=== PATIENT | male | born 1960 | race Caucasian/White ===

== ENCOUNTER 2016-10-22 15:21 | Observation (INO) | payer OTHER ==
[2016-10-22] MEDS ORDERED: ASPIRIN CHEW 81 MG TABLET PO STA (16:57)
[2016-10-22] MEDS ORDERED: ASPIRIN CHEW 81 MG TABLET ONE (17:10)
[2016-10-22] MEDS ORDERED: ONDANSETRON 4 MG/2 ML VIAL IVP PRN (19:08)
[2016-10-22] MEDS ORDERED: SODIUM CHLORIDE FLUSH 0.9% 10 ML SYRINGE IVP PRN (19:08)
[2016-10-22] MEDS ORDERED: ACETAMINOPHEN 325 MG TABLET PO PRN (19:08)
[2016-10-22] MEDS ORDERED: TEMAZEPAM 15 MG CAPSULE PO PRN (19:08)
[2016-10-22] MEDS ORDERED: NITROGLYCERIN SL 0.4 MG TABLET SL PRN (19:10)
[2016-10-22] MEDS ORDERED: LORazepam 2 MG/ML SYRINGE IVP PRN (20:05)
[2016-10-22] MEDS: SODIUM CHLORIDE FLUSH 0.9% 10 ML SYRINGE IVP SCH (22:28)
[2016-10-23] MEDS: SODIUM CHLORIDE FLUSH 0.9% 10 ML SYRINGE IVP SCH (06:17)
[2016-10-23] MEDS ORDERED: PANTOPRAZOLE 40 MG TABLET PO SCH (07:00)
[2016-10-23] MEDS ORDERED: IPRATROPIUM 0.2 MG/ML NEB INH SCH ×2 (07:00→09:00)
[2016-10-23] MEDS ORDERED: IPRATROPIUM 0.2 MG/ML NEB INH ONE (07:03)
[2016-10-23] MEDS ORDERED: ENOXAPARIN 40 MG/0.4 ML SYRINGE SUBQ SCH (09:00)
[2016-10-23] MEDS ORDERED: POLYETHYLENE GLYCOL 3350 17 GM PACKET PO SCH (09:00)
[2016-10-23] MEDS ORDERED: ASPIRIN EC 81 MG TABLET PO SCH (09:00)
== END 2016-10-23 12:56 | disposition home or self-care (01) ==
DX: R07.89 Other chest pain (principal); J43.8 Other emphysema; K21.9 Gastro-esophageal reflux disease without esophagitis; Z87.891 Personal history of nicotine dependence; Z82.49 Family history of ischemic heart disease and other diseases of the circulatory system; Z85.828 Personal history of other malignant neoplasm of skin
CPT/HCPCS: 36415; 71010; 80048; 80053; 80061; 82550; 82553; 83036; 83690; 83735; 84100; 84484; 85025; 85651; 86141; 87275; 87276; 93005; 93306; 94640; 96372; 99284; A9270; G0378; J1650

== ENCOUNTER 2016-12-25 08:48 | Outpatient (CLI) | payer OTHER | END 2016-12-25 08:49 | disposition home or self-care (01) | DX: R07.9 Chest pain, unspecified (principal); R06.02 Shortness of breath ==

== ENCOUNTER 2017-09-30 15:25 | Emergency (ER) | payer OTHER ==
[2017-09-30] MEDS ORDERED: predniSONE 20 MG TABLET PO STA (16:38)
[2017-09-30] MEDS ORDERED: IPRATROPIUM/ALBUTEROL 3 ML NEB INH STA (16:39)
--- NOTE | 2017-09-30 16:44 | ED Physician Documentation ---
History of Present Illness - Stated complaint Stated Complaint: DIFF BREATHING/CHILLS/N - Chief complaint Chief Complaint: Resp - History obtained from History obtained from: Patient, Family - History of Present Illness Timing: How many days ago (2) Pain level max: 2 Pain level now: 2 Improved by: rest Worsened by: exertion - Additonal information Additional information: Patient is a 57-year-old male who presents to the emergency department complaining that he has felt sick since . Feels a tightness in his chest like a "child is sitting on top of me". He has been using his Spiriva but not his rescue inhaler has bullous emphysema. States has felt febrile, but no measured fevers. Has a mild dry cough. Also has body aches. Review of Systems Ten Systems: 10 systems reviewed and negative Constitutional: reports: Fever. denies: Chills Ears: denies: Ear pain Nose: reports: Rhinorrhea / runny nose, Congestion Throat: denies: Sore throat Cardiac: denies: Chest pain / pressure Respiratory: reports: Dyspnea, Cough, Wheezing GI: denies: Abdominal Pain, Nausea, Vomiting, Diarrhea Skin: denies: Rash Musculoskeletal: denies: Neck pain, Back pain Neurologic: denies: Headache PD PAST MEDICAL HISTORY - Past Medical History Past Medical History: Yes Cardiovascular: None Respiratory: Emphysema Neuro: None Endocrine/Autoimmune: None GI: GERD : None HEENT: None Musculoskeletal: Chronic back pain Derm: None - Past Surgical History Past Surgical History: Yes General: Appendectomy, Hiatal hernia repair Ortho: Spine surgery Cardiovascular: Other Derm: Skin cancer surgery - Present Medications Home Medications: Ambulatory Orders Medication Instructions Recorded Confirmed Tiotropium [place] [Spiriva] 1 puffs INH DAILY 10/23/16 09/30/17 Albuterol Sulf [Ventolin Hfa 2 puffs INH Q4HR PRN #1 inhaler 09/30/17 Inhaler] Esomeprazole Magnesium [Nexium] 40 mg PO DAILY 09/30/17 09/30/17 predniSONE [Prednisone] 40 mg PO DAILY #10 tablet 09/30/17 - Allergies Allergies/Adverse Reactions: Allergies Allergy/AdvReac Type Severity Reaction Status Date / Time No Known Drug Allergies Allergy Verified 09/30/17 15:33 - Social History Does the pt smoke?: No Smoking Status: Former smoker Does the pt drink ETOH?: Yes Does the pt have substance abuse?: Yes Substance Use and Type: Marijuana - Immunizations Immunizations are current?: Yes PD ED PE NORMAL - Vitals Vital signs reviewed: Yes - General General: Alert and oriented X 3, No acute distress - HEENT HEENT: PERRL, Moist mucous membranes, Pharynx benign - Neck Neck: Supple, no meningeal sign - Cardiac Cardiac: RRR, Strong equal pulses - Respiratory Respiratory: No respiratory distress, Other (mild wheezing B) - Abdomen Abdomen: Soft, Non tender, Non distended - Derm Derm: Warm and dry - Extremities Extremities: No edema, No calf tenderness / cord - Neuro Neuro: Alert and oriented X 3 - Psych Psych: Normal mood, Normal affect Results - Vitals Vitals: Vital Signs - 24 hr 09/30/17 09/30/17 09/30/17 15:30 16:05 16:55 Temperature 36.3 C L Heart Rate 88 81 74 Respiratory 16 18 12 Rate Blood Pressure 161/87 H 143/85 H O2 Saturation 98 100 09/30/17 18:00 Temperature Heart Rate 85 Respiratory 16 Rate Blood Pressure 130/81 H O2 Saturation 98 Oxygen O2 Source Room air - EKG (time done) 1650 Rate: Rate (enter#) (78) Rhythm: NSR [place]: Normal Intervals: Normal [place] QRS: Normal Ischemia: Normal ST segments - Labs Labs: Laboratory Tests 09/30/17 09/30/17 09/30/17 16:46 16:46 16:46 WBC 7.8 RBC 5.02 Hgb 15.2 Hct 45.7 MCV 91.1 MCH 30.3 MCHC 33.3 RDW 12.8 Plt Count 212 MPV 7.8 Neut # 6.1 Lymph # 0.9 L [place] # 0.5 Eos # 0.2 Baso # 0.0 Absolute Nucleated RBC 0.00 Nucleated RBC % 0.0 Sodium 138 Potassium 4.3 Chloride 103 Carbon Dioxide 27 Anion Gap 8.0 BUN 15 Creatinine 0.7 Estimated GFR (MDRD) 115 Glucose 105 H Calcium 9.3 Total Bilirubin 0.5 AST 28 ALT 22 Alkaline Phosphatase 45 Troponin I < 0.04 Total Protein 7.2 Albumin 4.5 Globulin 2.7 Albumin/Globulin Ratio 1.7 Lipase 25 - Rads (name of study) cxr Radiology: Prelim report reviewed, EMP read contemporaneously, See rad report ( Chronic biapical changes, otherwise unremarkable single view chest. ) PD MEDICAL DECISION MAKING - ED course Complexity details: reviewed results, re-evaluated patient, considered differential, d/w patient ED course: Patient is a 57-year-old male who presents to the emergency department with what appears to be a COPD flare. He is well-appearing, nontoxic. Afebrile. No hypoxia. Feels better after breathing treatments and steroids. No evidence of acute coronary syndrome. No pneumothorax. No pneumonia. No sepsis. We will continue supportive care and follow-up with his doctor. Patient counseled regarding signs and symptoms for which I believe and urgent re-evaluation would be necessary. Patient with good understanding of and agreement to plan and is comfortable going home at this time This document was made in part using voice recognition software. While efforts are made to proofread this document, sound alike and grammatical errors may occur. Departure - Departure Disposition: 01 Home, Self Care Clinical Impression: URI, acute Chest pain Qualifiers: Chest pain type: unspecified Qualified Code(s): R07.9 - Chest pain, unspecified Condition: Good Instructions: ED Viral Syndrome Follow-Up: Provider,Other [Primary Care Provider] - Within 1 week Prescriptions: Albuterol Sulf [Ventolin Hfa Inhaler] 2 puffs INH Q4HR PRN #1 inhaler PRN Reason: Wheezing predniSONE [Prednisone] 40 mg PO DAILY #10 tablet Comments: Return if you worsen. This should improve over the next few days. Forms: Activity restrictions Discharge Date/Time: 09/30/17 18:04
[2017-09-30 16:52] LABS: BASOPHILS % (AUTO) 0.6 %; EOSINOPHILS # (AUTO) 0.2 10^3/uL (0.0-0.7); EOSINOPHILS % (AUTO) 2.6 %; HGB - HEMOGLOBIN 15.2 g/dL (14.0-18.0); LYMPHOCYTES # (AUTO) 0.9 10^3/uL (1.5-3.5); LYMPHOCYTES % (AUTO) 11.6 %; MEAN CORPUSCULAR HEMOGLOBIN 30.3 pg (27.0-31.0); MEAN CORPUSCULAR HGB CONC 33.3 g/dL (32.0-36.0); MEAN CORPUSCULAR VOLUME 91.1 fL (80.0-94.0); MEAN PLATELET VOLUME 7.8 fL (7.4-11.4); MONOCYTES # (AUTO) 0.5 10^3/uL (0.0-1.0); NEUTROPHILS # (AUTO) 6.1 10^3/uL (1.5-6.6); NEUTROPHILS % (AUTO) 78.2 %; PLT - PLATELET COUNT 212 10^3/uL (130-450); RED BLOOD COUNT 5.02 10^6/uL (4.70-6.10); RED CELL DISTRIBUTION WIDTH 12.8 % (12.0-15.0); WHITE BLOOD COUNT 7.8 x10^3/uL (4.8-10.8)
[2017-09-30 17:05] LABS: ALBUMIN 4.5 g/dL (3.2-5.5); ALBUMIN/GLOBULIN RATIO 1.7 (1.0-2.2); BILIRUBIN,TOTAL 0.5 mg/dL (0.2-1.0); CALCIUM 9.3 mg/dL (8.5-10.3); CREATININE 0.7 mg/dL (0.6-1.2); TOTAL PROTEIN 7.2 g/dL (6.7-8.2)
--- NOTE | 2017-09-30 17:45 | XRAY Report ---
EXAM: CHEST RADIOGRAPHY EXAM DATE: 09/30/2017 05:22 PM. CLINICAL HISTORY: Chest pain. Dyspnea. COMPARISON: 10/23/2012. TECHNIQUE: 1 view. FINDINGS: Lungs/Pleura: Evidence of biapical scarring and surgery, otherwise no focal opacities evident. No ple ural effusion. No pneumothorax. Mediastinum: Within exam limitations, the cardiomediastinal contour is normal. Other: No bony abnormalities noted. IMPRESSION: Chronic biapical changes, otherwise unremarkable single view chest. [facility] Referring Provider Line: [phone] SITE ID: [id number]
[2017-09-30 18:00] VITALS: BP 130/81
== END 2017-09-30 18:04 | disposition home or self-care (01) ==
LOC: ED 15:25
DX: J06.9 Acute upper respiratory infection, unspecified (principal); R07.9 Chest pain, unspecified; J43.9 Emphysema, unspecified; K21.9 Gastro-esophageal reflux disease without esophagitis; Z87.891 Personal history of nicotine dependence
CPT/HCPCS: 36415; 71010; 80053; 83690; 84484; 85025; 93005; 94640; 99283; 99284; J7512; J7620

== ENCOUNTER 2019-01-24 12:53 | Emergency (ER) | payer OTHER ==
[2019-01-24 13:18] LABS: BASOPHILS # (AUTO) 0.1 10^3/uL (0.0-0.1); BASOPHILS % (AUTO) 1.1 %; EOSINOPHILS # (AUTO) 0.2 10^3/uL (0.0-0.7); EOSINOPHILS % (AUTO) 2.5 %; HGB - HEMOGLOBIN 16.2 g/dL (14.0-18.0); LYMPHOCYTES # (AUTO) 1.1 10^3/uL (1.5-3.5); LYMPHOCYTES % (AUTO) 12.6 %; MEAN CORPUSCULAR HEMOGLOBIN 30.3 pg (27.0-31.0); MEAN CORPUSCULAR HGB CONC 33.5 g/dL (32.0-36.0); MEAN CORPUSCULAR VOLUME 90.4 fL (80.0-94.0); MEAN PLATELET VOLUME 7.9 fL (7.4-11.4); MONOCYTES # (AUTO) 0.8 10^3/uL (0.0-1.0); MONOCYTES % (AUTO) 9.7 %; NEUTROPHILS # (AUTO) 6.4 10^3/uL (1.5-6.6); NEUTROPHILS % (AUTO) 74.1 %; PLT - PLATELET COUNT 225 10^3/uL (130-450); RED BLOOD COUNT 5.36 10^6/uL (4.70-6.10); RED CELL DISTRIBUTION WIDTH 13.4 % (12.0-15.0); WHITE BLOOD COUNT 8.6 x10^3/uL (4.8-10.8)
[2019-01-24 13:28] LABS: ALBUMIN 4.4 g/dL (3.2-5.5); ALBUMIN/GLOBULIN RATIO 1.4 (1.0-2.2); CALCIUM 8.7 mg/dL (8.5-10.3); CREATININE 0.9 mg/dL (0.6-1.2); TOTAL PROTEIN 7.5 g/dL (6.7-8.2)
--- NOTE | 2019-01-24 14:20 | ED Physician Documentation ---
PD HPI ABD PAIN - Stated complaint Stated Complaint: DIARRHEA - Chief complaint Chief Complaint: Abd Pain - History obtained from History obtained from: Patient - History of Present Illness Timing - onset: Other (4 days N/V/D, constant with fever at home to 101.4. Slight epigastric pain. Chest tight and slight dyspnea. Can take fluids, but still cannot take solids.) Review of Systems Ten Systems: 10 systems reviewed and negative Constitutional: reports: Fever, Chills Nose: denies: Rhinorrhea / runny nose Cardiac: reports: Chest pain / pressure. denies: Palpitations Respiratory: reports: Dyspnea, Cough (slight, dry) GI: reports: Abdominal Pain, Nausea, Vomiting, Diarrhea. denies: Constipation, Hematemesis, Bloody / black stool PD PAST MEDICAL HISTORY - Past Medical History Cardiovascular: None Respiratory: Emphysema Endocrine/Autoimmune: None GI: GERD : None HEENT: None Musculoskeletal: Chronic back pain Derm: None - Past Surgical History Past Surgical History: Yes General: Appendectomy, Hiatal hernia repair Ortho: Spine surgery Cardiovascular: Other (bilateral lobectomy) Derm: Skin cancer surgery - Present Medications Home Medications: Ambulatory Orders Medication Instructions Recorded Confirmed Tiotropium [place] [Spiriva] 1 puffs INH DAILY 10/23/16 09/30/17 Albuterol Sulf [Ventolin Hfa 2 puffs INH Q4HR PRN #1 inhaler 09/30/17 Inhaler] Hydrocodone/Acetaminophen 1 - 2 each PO Q6H PRN #10 tablet 01/24/19 [Hydrocodon-Acetaminophen 5-325] Omeprazole 20 mg PO 01/24/19 01/24/19 Ondansetron Odt [Zofran] 4 mg TL Q6H PRN #10 tablet 01/24/19 - Allergies Allergies/Adverse Reactions: Allergies Allergy/AdvReac Type Severity Reaction Status Date / Time No Known Drug Allergies Allergy Verified 01/24/19 12:58 - Social History Does the pt smoke?: No Smoking Status: Former smoker Does the pt drink ETOH?: Yes Does the pt have substance abuse?: Yes - Family History Family history: reports: Non contributory - Immunizations Immunizations are current?: Yes PD ED PE NORMAL - Vitals Vital signs reviewed: Yes - General General: Alert and oriented X 3, No acute distress - HEENT HEENT: PERRL, EOMI - Neck Neck: Supple, no meningeal sign, No bony TTP - Cardiac Cardiac: RRR, No murmur - Respiratory Respiratory: No respiratory distress, Clear bilaterally - Abdomen Abdomen: Normal bowel sounds, Other (Epigastric TTP, no surgical signs) - Back Back: No CVA TTP, No spinal TTP - Derm Derm: Normal color, Warm and dry - Extremities Extremities: No edema, No calf tenderness / cord - Neuro Neuro: Alert and oriented X 3, Normal speech - Psych Psych: Normal mood, Normal affect Results - Vitals Vitals: Vital Signs - 24 hr 01/24/19 12:56 Temperature 35.7 C L Heart Rate 100 Respiratory 20 Rate Blood Pressure 135/76 H O2 Saturation 99 Oxygen O2 Source Room air - EKG (time done) 1312 Rate: Rate (enter#) (90) Rhythm: NSR [place]: Normal Intervals: Normal [place] QRS: Normal Ischemia: Normal ST segments Computer interpretation: Agree with computer - Labs Labs: Laboratory Tests 01/24/19 01/24/19 01/24/19 13:11 13:11 13:11 WBC 8.6 RBC 5.36 Hgb 16.2 Hct 48.5 MCV 90.4 MCH 30.3 MCHC 33.5 RDW 13.4 Plt Count 225 MPV 7.9 Neut # (Auto) 6.4 Lymph # (Auto) 1.1 L [place] # (Auto) 0.8 Eos # (Auto) 0.2 Baso # (Auto) 0.1 Absolute Nucleated RBC 0.01 Nucleated RBC % 0.1 D-Dimer < 200.0 L Sodium 136 Potassium 3.7 Chloride 100 L Carbon Dioxide 27 Anion Gap 9.0 BUN 22 H Creatinine 0.9 Estimated GFR (MDRD) 86 L Glucose 109 H Calcium 8.7 Total Bilirubin 1.0 AST 28 ALT 24 Alkaline Phosphatase 53 Troponin I Total Protein 7.5 Albumin 4.4 Globulin 3.1 Albumin/Globulin Ratio 1.4 Lipase 28 Urine Color Urine Clarity Urine pH Ur Specific [place] Urine Protein Urine Glucose (UA) Urine Ketones Urine Occult Blood Urine Nitrite Urine Bilirubin Urine Urobilinogen Ur Leukocyte Esterase Ur Microscopic Review Urine Culture Comments 01/24/19 01/24/19 13:11 14:16 WBC RBC Hgb Hct MCV MCH MCHC RDW Plt Count MPV Neut # (Auto) Lymph # (Auto) [place] # (Auto) Eos # (Auto) Baso # (Auto) Absolute Nucleated RBC Nucleated RBC % D-Dimer Sodium Potassium Chloride Carbon Dioxide Anion Gap BUN Creatinine Estimated GFR (MDRD) Glucose Calcium Total Bilirubin AST ALT Alkaline Phosphatase Troponin I < 0.04 Total Protein Albumin Globulin Albumin/Globulin Ratio Lipase Urine Color YELLOW Urine Clarity CLEAR Urine pH 5.0 Ur Specific [place] 1.020 Urine Protein NEGATIVE Urine Glucose (UA) NEGATIVE Urine Ketones TRACE Urine Occult Blood TRACE-INTA Urine Nitrite NEGATIVE Urine Bilirubin NEGATIVE Urine Urobilinogen 1 (NORMAL) Ur Leukocyte Esterase NEGATIVE Ur Microscopic Review NOT INDICATED Urine Culture Comments NOT INDICATED - Rads (name of study) 2v chest Radiology: EMP read contemporaneously (NAD) PD MEDICAL DECISION MAKING - ED course ED course: This is a 58-year-old gentleman who presents with mild pleuritic chest pain in the setting of what otherwise sounds like a viral gastroenteritis. Work-up demonstrates elevated BUN but normal chest x-ray, EKG, troponin and other labs. He was feeling better after meds here. He requested a work note. Departure - Departure Disposition: 01 Home, Self Care Clinical Impression: Vomiting, Diarrhea, Chest pain Condition: Good Record reviewed to determine appropriate education?: Yes Instructions: ED Nausea Vomiting Prescriptions: Hydrocodone/Acetaminophen [Hydrocodon-Acetaminophen 5-325] 1 - 2 each PO Q6H PRN #10 tablet PRN Reason: pain Ondansetron Odt [Zofran] 4 mg TL Q6H PRN #10 tablet PRN Reason: Nausea / Vomiting Comments: Labs and x-rays show only mild dehydration today. No evidence of a heart issue. Return if worse or if not better in the next 12 hours. Forms: Activity restrictions
[2019-01-24] MEDS ORDERED: SODIUM CHLORIDE 0.9% 1,000 ML IV ONE (14:22)
[2019-01-24] MEDS ORDERED: MAG HYDROX/AL HYDROX/SIMETH 30 ML UDC PO STA (14:23)
[2019-01-24] MEDS ORDERED: LIDOCAINE VISCOUS 2% 15 ML UDC MM STA (14:23)
[2019-01-24 14:26] LABS: BILIRUBIN,URINE NEGATIVE (NEGATIVE); GLUCOSE, URINE (UA) NEGATIVE (NEGATIVE); KETONES,URINE (UA) TRACE mg/dL (NEGATIVE); LEUKOCYTE ESTERASE, URINE NEGATIVE (NEGATIVE); NITRITE,URINE NEGATIVE (NEGATIVE); OCCULT BLOOD,URINE TRACE-INTA (NEGATIVE); PROTEIN,URINE NEGATIVE (NEGATIVE); UROBILINOGEN,URINE 1 (NORMAL) E.U./dL (NORMAL)
[2019-01-24] MEDS ORDERED: KETOROLAC 30 MG/ML VIAL IVP STA (14:30)
[2019-01-24] MEDS ORDERED: ONDANSETRON 4 MG/2 ML VIAL IVP STA (14:30)
[2019-01-24 14:31] LABS: CLARITY,URINE CLEAR (CLEAR)
--- NOTE | 2019-01-24 14:57 | XRAY Report ---
Reason: chest pain cough Procedure Date: 01/24/2019 Accession Number: [id number] / [id number] Procedure: XR - Chest 2 View X-Ray CPT Code: 27033 FULL RESULT: EXAM: CHEST RADIOGRAPHY EXAM DATE: 01/24/2019 02:45 PM. CLINICAL HISTORY: Chest pain cough. COMPARISON: CHEST 1 VIEW 09/30/2017 5:13 PM. TECHNIQUE: 2 views. FINDINGS: Lungs/Pleura: Lungs appear without significant change. There is mild elevation of the right hemidiaphragm. There is central interstitial prominence in the right lung. Negative for pleural effusion or pneumothorax. Mediastinum: Heart size is normal. Trachea is midline. Other: None. IMPRESSION: No change. No acute pneumonia. [facility]
[2019-01-24 15:31] VITALS: BP 129/78
== END 2019-01-24 15:37 | disposition home or self-care (01) ==
LOC: ED 12:53
DX: R11.2 Nausea with vomiting, unspecified (principal); R19.7 Diarrhea, unspecified; R07.81 Pleurodynia; E86.0 Dehydration; K21.9 Gastro-esophageal reflux disease without esophagitis; J43.9 Emphysema, unspecified; Z87.891 Personal history of nicotine dependence
CPT/HCPCS: 36415; 71046; 80053; 81003; 83690; 84484; 85025; 85379; 93005; 96361; 96374; 99283; A9270; 81001; 87086

== ENCOUNTER 2019-10-21 12:41 | Emergency (ER) | payer OTHER ==
--- NOTE | 2019-10-21 16:02 | ED Physician Documentation ---
PD HPI URI - Stated complaint Stated Complaint: SOA/FEVER - Chief complaint Chief Complaint: General - History obtained from History obtained from: Patient - History of Present Illness Timing - onset: Last night Timing duration: Days (1) Timing details: Abrupt onset, Still present Associated symptoms: Fever, Chills, Nasal congestion, Dry cough, Other (urinary frequency). No: Sore throat Improves by: Rest, Medication Worsened by: Activity Similar symptoms before: Has not had sx before Recently seen: Not recently seen - Additional information Additional information: Previously well 59-year-old male was at work last night when he developed shaking chills. He has developed a bit of a headache and now he is coming to the emergency department for evaluation. He continues to have a headache behind his ears bilaterally and he has some urinary frequency without dysuria. Review of Systems Constitutional: reports: Fever, Chills, Myalgias, Fatigue Eyes: denies: Decreased vision Ears: reports: Ear pain Nose: reports: Congestion Throat: denies: Sore throat Cardiac: denies: Chest pain / pressure, Palpitations Respiratory: reports: Cough. denies: Dyspnea GI: denies: Abdominal Pain, Nausea, Vomiting : reports: Frequency. denies: Dysuria Skin: denies: Rash Musculoskeletal: denies: Neck pain, Back pain, Extremity pain Neurologic: denies: Generalized weakness, Focal weakness, Numbness Psychiatric: denies: Depressed PD PAST MEDICAL HISTORY - Past Medical History Cardiovascular: None Respiratory: Emphysema Neuro: None Endocrine/Autoimmune: None GI: GERD : None HEENT: None Psych: None Musculoskeletal: Chronic back pain Derm: None - Past Surgical History Past Surgical History: Yes General: Appendectomy, Hiatal hernia repair Ortho: Spine surgery Cardiovascular: Other (bilateral lobectomy) Derm: Skin cancer surgery - Present Medications Home Medications: Ambulatory Orders Medication Instructions Recorded Confirmed Tiotropium [place] [Spiriva] 1 puffs INH DAILY 10/23/16 09/30/17 Albuterol Sulf [Ventolin Hfa 2 puffs INH Q4HR PRN #1 inhaler 09/30/17 Inhaler] Hydrocodone/Acetaminophen 1 - 2 each PO Q6H PRN #10 tablet 01/24/19 [Hydrocodon-Acetaminophen 5-325] Omeprazole 20 mg PO 01/24/19 01/24/19 Ondansetron Odt [Zofran] 4 mg TL Q6H PRN #10 tablet 01/24/19 - Allergies Allergies/Adverse Reactions: Allergies Allergy/AdvReac Type Severity Reaction Status Date / Time No Known Drug Allergies Allergy Verified 10/21/19 12:54 - Social History Does the pt smoke?: No Smoking Status: Former smoker Does the pt drink ETOH?: Yes Does the pt have substance abuse?: Yes - Immunizations Immunizations are current?: Yes - POLST Patient has POLST: No PD ED PE NORMAL - Vitals Vital signs reviewed: Yes (tachy ) - General General: Alert and oriented X 3, No acute distress, Well developed/nourished, Other (warm to the touch) - HEENT HEENT: Atraumatic, PERRL, Pharynx benign, Dentition benign, Other (minimal inflamation to both TM's) - Cardiac Cardiac: RRR, No murmur - Respiratory Respiratory: No respiratory distress, Clear bilaterally - Abdomen Abdomen: Normal bowel sounds, Soft, Non tender, Non distended, No organomegaly - Back Back: No CVA TTP, No spinal TTP - Derm Derm: Normal color, Warm and dry, No rash - Extremities Extremities: No deformity, No tenderness to palpate, No edema, No calf tenderness / cord - Neuro Neuro: Alert and oriented X 3 Eye Opening: Spontaneous Motor: Obeys Commands Verbal: Oriented GCS Score: 15 - Psych Psych: Normal mood Results - Vitals Vitals: Vital Signs - 24 hr 10/21/19 10/21/19 10/21/19 12:50 15:21 18:16 Temperature 36.9 C 37.7 C H 36.9 C Heart Rate 102 H 97 85 Respiratory 16 18 18 Rate Blood Pressure 116/76 115/68 123/75 O2 Saturation 97 98 98 Oxygen O2 Source Room air - Labs Labs: Laboratory Tests 10/21/19 10/21/19 10/21/19 12:55 16:26 17:40 WBC 7.2 RBC 4.92 Hgb 15.0 Hct 44.7 MCV 90.9 MCH 30.5 MCHC 33.6 RDW 12.8 Plt Count 187 MPV 9.5 Neut # (Auto) 6.1 Lymph # (Auto) 0.4 L [place] # (Auto) 0.5 Eos # (Auto) 0.1 Baso # (Auto) 0.0 Absolute Nucleated RBC 0.00 Nucleated RBC % 0.0 Sodium Potassium Chloride Carbon Dioxide Anion Gap BUN Creatinine Estimated GFR (MDRD) Glucose Lactic Acid Calcium Total Bilirubin AST ALT Alkaline Phosphatase Total Protein Albumin Globulin Albumin/Globulin Ratio Lipase Urine Color YELLOW Urine Clarity CLEAR Urine pH 6.5 Ur Specific [place] 1.025 Urine Protein NEGATIVE Urine Glucose (UA) NEGATIVE Urine Ketones NEGATIVE Urine Occult Blood TRACE-LYSE Urine Nitrite NEGATIVE Urine Bilirubin NEGATIVE Urine Urobilinogen 0.2 (NORMAL) Ur Leukocyte Esterase NEGATIVE Ur Microscopic Review NOT INDICATED Urine Culture Comments NOT INDICATED Influenza A (Rapid) Negative Influenza B (Rapid) Negative 10/21/19 10/21/19 17:40 17:40 WBC RBC Hgb Hct MCV MCH MCHC RDW Plt Count MPV Neut # (Auto) Lymph # (Auto) [place] # (Auto) Eos # (Auto) Baso # (Auto) Absolute Nucleated RBC Nucleated RBC % Sodium 135 Potassium 3.5 Chloride 104 Carbon Dioxide 23 Anion Gap 8.0 BUN 15 Creatinine 0.8 Estimated GFR (MDRD) 98 Glucose 132 H Lactic Acid 0.8 Calcium 8.9 Total Bilirubin 1.1 H AST 32 ALT 25 Alkaline Phosphatase 53 Total Protein 7.4 Albumin 4.4 Globulin 3.0 Albumin/Globulin Ratio 1.5 Lipase 28 Urine Color Urine Clarity Urine pH Ur Specific [place] Urine Protein Urine Glucose (UA) Urine Ketones Urine Occult Blood Urine Nitrite Urine Bilirubin Urine Urobilinogen Ur Leukocyte Esterase Ur Microscopic Review Urine Culture Comments Influenza A (Rapid) Influenza B (Rapid) - Rads (name of study) chest 2 view Radiology: Prelim report reviewed (Impression: No change negative for acute cardiopulmonary abnormality.), EMP read indepedently, See rad report PD MEDICAL DECISION MAKING - ED course Complexity details: considered differential, d/w patient ED course: 59-year-old male with shaking chills beginning last night has a negative influenza serology and continues to have some chills and fever today. He has minimal respiratory complaints and no inflammation on examination. His chest x- ray was without evidence of infiltrate his blood work is unremarkable lactate is unremarkable I do not believe he has sepsis. Urinalysis is unremarkable. He is diagnosed with a viral syndrome and we have recommended conservative treatment with fluids and tylenol. He is administered toradal for headache. Departure - Departure Disposition: 01 Home, Self Care Clinical Impression: Viral syndrome Instructions: ED Viral Syndrome Follow-Up: KHALIF GUEVARA [Primary Care Provider] - Forms: Activity restrictions
[2019-10-21 16:33] LABS: BILIRUBIN,URINE NEGATIVE (NEGATIVE); GLUCOSE, URINE (UA) NEGATIVE (NEGATIVE); KETONES,URINE (UA) NEGATIVE (NEGATIVE); LEUKOCYTE ESTERASE, URINE NEGATIVE (NEGATIVE); NITRITE,URINE NEGATIVE (NEGATIVE); OCCULT BLOOD,URINE TRACE-LYSE (NEGATIVE); PH,URINE 6.5 PH (5.0-7.5); PROTEIN,URINE NEGATIVE (NEGATIVE); UROBILINOGEN,URINE 0.2 (NORMAL) E.U./dL (NORMAL)
[2019-10-21 16:36] LABS: CLARITY,URINE CLEAR (CLEAR)
[2019-10-21] MEDS ORDERED: SODIUM CHLORIDE 0.9% 1,000 ML IV ONE (17:19)
[2019-10-21] MEDS ORDERED: KETOROLAC 30 MG/ML VIAL IVP STA (17:45)
[2019-10-21 17:51] LABS: BASOPHILS % (AUTO) 0.3 %; EOSINOPHILS # (AUTO) 0.1 10^3/uL (0.0-0.7); EOSINOPHILS % (AUTO) 1.4 %; LYMPHOCYTES # (AUTO) 0.4 10^3/uL (1.5-3.5); LYMPHOCYTES % (AUTO) 5.3 %; MEAN CORPUSCULAR HEMOGLOBIN 30.5 pg (27.0-31.0); MEAN CORPUSCULAR HGB CONC 33.6 g/dL (32.0-36.0); MEAN CORPUSCULAR VOLUME 90.9 fL (80.0-94.0); MEAN PLATELET VOLUME 9.5 fL (7.4-11.4); MONOCYTES # (AUTO) 0.5 10^3/uL (0.0-1.0); MONOCYTES % (AUTO) 6.8 %; NEUTROPHILS # (AUTO) 6.1 10^3/uL (1.5-6.6); NEUTROPHILS % (AUTO) 85.6 %; PLT - PLATELET COUNT 187 10^3/uL (130-450); RED BLOOD COUNT 4.92 10^6/uL (4.70-6.10); RED CELL DISTRIBUTION WIDTH 12.8 % (12.0-15.0); WHITE BLOOD COUNT 7.2 x10^3/uL (4.8-10.8)
[2019-10-21 18:04] LABS: ALBUMIN 4.4 g/dL (3.2-5.5); ALBUMIN/GLOBULIN RATIO 1.5 (1.0-2.2); BILIRUBIN,TOTAL 1.1 mg/dL (0.2-1.0); CALCIUM 8.9 mg/dL (8.5-10.3); CREATININE 0.8 mg/dL (0.6-1.2); TOTAL PROTEIN 7.4 g/dL (6.7-8.2)
--- NOTE | 2019-10-21 18:08 | XRAY Report ---
Reason: fever Procedure Date: 10/21/2019 Accession Number: [id number] / [id number] Procedure: XR - Chest 2 View X-Ray CPT Code: 01672 Final Report FULL RESULT: EXAM: CHEST RADIOGRAPHY EXAM DATE: 10/21/2019 05:31 PM. CLINICAL HISTORY: Fever. COMPARISON: CHEST 2 VIEW 01/24/2019 2:34 PM. TECHNIQUE: 2 views. FINDINGS: Lungs/Pleura: There are streaky linear densities at the right lung base without significant change. There is a linear density in the left apex unchanged. Stable lung volumes. No acute pneumonia or pleural effusion. Mediastinum: The heart size is normal. The trachea is midline. Other: None. IMPRESSION: No change. Negative for an acute cardiopulmonary abnormality. [facility]
[2019-10-21 18:58] VITALS: BP 115/72
== END 2019-10-21 19:08 | disposition home or self-care (01) ==
LOC: ED 12:41
DX: B34.9 Viral infection, unspecified (principal); R51 Headache; J43.9 Emphysema, unspecified; Z87.891 Personal history of nicotine dependence
CPT/HCPCS: 36415; 71046; 80053; 81001; 81003; 83605; 83690; 85025; 87040; 87086; 87275; 87276; 93005; 96361; 96374; 99284

== ENCOUNTER 2019-11-01 14:29 | Emergency (ER) | payer OTHER ==
[2019-11-01 15:26] LABS: RAPID STREP SCREEN Negative (Negative)
--- NOTE | 2019-11-01 15:48 | XRAY Report ---
Reason: cough Procedure Date: 11/01/2019 Accession Number: [id number] / [id number] Procedure: XR - Chest 2 View X-Ray CPT Code: 36898 Final Report FULL RESULT: EXAM: CHEST RADIOGRAPHY EXAM DATE: 11/01/2019 03:36 PM. CLINICAL HISTORY: Cough. Shortness of breath. Chest pain. COMPARISON: CHEST 2 VIEW 10/21/2019 5:23 PM. TECHNIQUE: 2 views. FINDINGS: Lungs/Pleura: Staple line in the left upper perihilar region, as before. No focal opacities evident. No pleural effusion. No pneumothorax. Normal volumes. Mediastinum: Heart and mediastinal contours are unremarkable. Other: None. IMPRESSION: No evidence of active cardiopulmonary disease. [facility]
--- NOTE | 2019-11-01 15:48 | ED Physician Documentation ---
PD HPI URI - Stated complaint Stated Complaint: FEVER,SORE THROAT - Chief complaint Chief Complaint: Fever - History obtained from History obtained from: Patient - History of Present Illness Timing - onset: How many weeks ago (3) Timing duration: Weeks (3) Timing details: Gradual onset, Still present Associated symptoms: Nasal congestion, Rhinorrhea, Sore throat, Dry cough, Dyspnea Contributing factors: Sick contact Improves by: Rest, Medication Worsened by: Activity Similar symptoms before: Diagnosis (viral uri) Recently seen: Emergency Dept - Additional information Additional information: 59-year-old male seen in the emergency department 11 days ago diagnosed with a viral URI and he states that he has had some improvement from that time and then worsening. He complains of a headache persistent cough low-grade fever and a change in his voice. He has not been able to go to work. Review of Systems Constitutional: reports: Fever, Chills, Myalgias, Fatigue Eyes: denies: Decreased vision Ears: denies: Ear pain Nose: reports: Rhinorrhea / runny nose, Congestion, Sinus pressure / pain Throat: reports: Sore throat Cardiac: denies: Chest pain / pressure, Palpitations Respiratory: reports: Dyspnea, Cough GI: denies: Vomiting PD PAST MEDICAL HISTORY - Past Medical History Cardiovascular: None Respiratory: Emphysema Neuro: Migraines Endocrine/Autoimmune: None GI: GERD : None HEENT: None Psych: None Musculoskeletal: Chronic back pain Derm: None - Past Surgical History Past Surgical History: Yes General: Appendectomy, Hiatal hernia repair Ortho: Spine surgery Cardiovascular: Other Derm: Skin cancer surgery - Present Medications Home Medications: Ambulatory Orders Medication Instructions Recorded Confirmed Tiotropium [place] [Spiriva] 1 puffs INH DAILY 10/23/16 09/30/17 Albuterol Sulf [Ventolin Hfa 2 puffs INH Q4HR PRN #1 inhaler 09/30/17 Inhaler] Hydrocodone/Acetaminophen 1 - 2 each PO Q6H PRN #10 tablet 01/24/19 [Hydrocodon-Acetaminophen 5-325] Omeprazole 20 mg PO 01/24/19 01/24/19 Ondansetron Odt [Zofran] 4 mg TL Q6H PRN #10 tablet 01/24/19 Amox/Clav 875/125 [Augmentin] 1 each PO Q12H #20 tablet 11/01/19 - Allergies Allergies/Adverse Reactions: Allergies Allergy/AdvReac Type Severity Reaction Status Date / Time No Known Drug Allergies Allergy Verified 11/01/19 14:42 - Social History Does the pt smoke?: No Smoking Status: Former smoker Does the pt drink ETOH?: Yes Does the pt have substance abuse?: Yes Substance Use and Type: Marijuana - Immunizations Immunizations are current?: Yes Immunizations: TDAP >10years/unknown - POLST Patient has POLST: No PD ED PE NORMAL - Vitals Vital signs reviewed: Yes (normal ) - General General: Alert and oriented X 3, No acute distress, Well developed/nourished - HEENT HEENT: Atraumatic, PERRL, EOMI, Moist mucous membranes, Pharynx benign, Other (Right TM is inflamed in the attic and along the umbo the left is less inflamed and retracted.) - Neck Neck: Supple, no meningeal sign, No bony TTP - Cardiac Cardiac: RRR, No murmur - Respiratory Respiratory: No respiratory distress, Clear bilaterally, Other (Diminished breath sounds) - Abdomen Abdomen: Soft, Non tender - Back Back: No CVA TTP, No spinal TTP - Derm Derm: Normal color, Warm and dry, No rash - Extremities Extremities: No deformity, No edema - Neuro Neuro: Alert and oriented X 3, 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, No motor deficit, No sensory deficit, Other Eye Opening: Spontaneous Motor: Obeys Commands Verbal: Oriented GCS Score: 15 Results - Vitals Vitals: Vital Signs - 24 hr 11/01/19 11/01/19 11/01/19 14:37 15:16 15:42 Temperature 36.7 C 37.4 C Heart Rate 93 88 88 Respiratory 14 18 18 Rate Blood Pressure 119/66 113/71 121/73 O2 Saturation 100 99 98 11/01/19 16:00 Temperature Heart Rate 89 Respiratory 18 Rate Blood Pressure 115/67 O2 Saturation 99 Oxygen O2 Source Room air - Labs Labs: Laboratory Tests 11/01/19 15:10 Group A Strep Rapid Negative - Rads (name of study) chest Radiology: Prelim report reviewed (Impression: No evidence of active cardiopulmonary disease.), EMP read indepedently, See rad report PD MEDICAL DECISION MAKING - ED course Complexity details: reviewed results, re-evaluated patient, considered differential, d/w patient ED course: Previously well 59-year-old male with a bimodal illness has otitis on exam today I suspect he has sinusitis as well and he is administered dexamethasone and Rocephin here in the emergency department. Departure - Departure Disposition: 01 Home, Self Care Clinical Impression: Otitis media Qualifiers: Otitis media type: suppurative Chronicity: acute Laterality: bilateral Recurrence: non-recurrent Spontaneous tympanic membrane rupture: without spontaneous rupture Qualified Code(s): H66.003 - Acute suppurative otitis media without spontaneous rupture of ear drum, bilateral Condition: Stable Instructions: ED Otitis Media Acute Adult Follow-Up: KHALIF GUEVARA [Primary Care Provider] - Prescriptions: Amox/Clav 875/125 [Augmentin] 1 each PO Q12H #20 tablet Forms: Activity restrictions
[2019-11-01] MEDS ORDERED: LIDOCAINE 1% 2 ML VIAL MC ONE (15:50)
[2019-11-01] MEDS ORDERED: cefTRIAXone 1 GM VIAL IM STA (15:50)
[2019-11-01 16:03] VITALS: BP 115/67
== END 2019-11-01 16:22 | disposition home or self-care (01) ==
LOC: ED 14:29
DX: H66.003 Acute suppurative otitis media without spontaneous rupture of ear drum, bilateral (principal); J43.9 Emphysema, unspecified; Z87.891 Personal history of nicotine dependence
CPT/HCPCS: 71046; 87070; 87430; 96374; 99284

== ENCOUNTER 2022-04-25 06:03 | Day surgery (SDC) | payer OTHER ==
[2022-04-25] MEDS ORDERED: LACTATED RINGERS 1,000 ML IV ONE ×2 (06:54→08:08)
--- NOTE | 2022-04-25 07:12 | ANESTHESIA ---
Pre-Anesthesia VS, & Labs - Diagnosis colon screening - Procedure colonoscopy Vital Signs: Temp Pulse Resp BP Pulse Ox 36.2 C L 90 16 131/83 H 97 04/25/22 06:42 04/25/22 06:42 04/25/22 06:42 04/25/22 06:42 04/25/22 06:42 Height: 5 ft 5 in Weight (kg): 58.5 kg Body Mass Index: 21.4 BMI Classification: Healthy weight - NPO >8 hours Home Medications and Allergies Home Medications: Ambulatory Orders Gabapentin [Neurontin] 100 mg PO TID 04/25/22 Tiotropium [place] [Spiriva] 1 puffs INH DAILY 10/23/16 Omeprazole 20 mg PO 01/24/19 Gabapentin [Neurontin] 100 mg PO TID 04/25/22 Allergies/Adverse Reactions: Allergies Allergy/AdvReac Type Severity Reaction Status Date / Time No Known Drug Allergies Allergy Verified 11/01/19 14:42 Anes History & Medical History - Anesthetic History Anesthesia Complications: reports: No previous complications Family history of Anesthesia Complications: Denies Family history of Malignant Hyperthermia: Denies - Medical History Cardiovascular: reports: None Pulmonary: reports: COPD (no inhaler use for > 1 year), Emphysema Gastrointestinal: reports: GERD Urinary: reports: None Musculoskeletal: reports: Chronic back pain Endocrine/Autoimmune: reports: None Blood Disorders: reports: None Skin: reports: Psoriasis Smoking Status: Former smoker (quit in 1997) Psychosocial: reports: Cannabis History of Cancer?: Yes (skin cancer - removed ) - Surgical History General: reports: Appendectomy, Hiatal hernia repair Cardiothoracic: reports: Other (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) Orthopedic: reports: Spine surgery Dermatologic: reports: Skin cancer surgery Exam General: Alert, Oriented x3, Cooperative, No acute distress Dental: WNL, Poor dentition Mouth Openin Fingerbreadth Neck Mobility: Normal Mallampati classification: II Thyromental Distance: less than 4 cm Respiratory: Lungs clear, Normal breath sounds Cardiovascular: Regular rate Neurological: Normal gait, Normal speech, Strength at 5/5 X4 ext, Normal tone, Sensation intact, Cranial nerves 3-12 NL, Reflexes 2+ Mental/Cognitive Status: Alert/Oriented X3, Normal for patient Cognitive Status: Within normal limits Plan Anesthesia Type: General, Total IV Consent for Procedure(s) Verified and Reviewed: Yes Code Status: Attempt Resuscitation ASA classification: 2-Mild systemic disease Is this case an emergency?: No
[2022-04-25] MEDS ORDERED: LIDOCAINE-MPF 2% 5 ML VIAL ONE (07:17)
[2022-04-25] MEDS ORDERED: PROPOFOL 500 MG/50 ML 500 MG/50 ML VIAL ONE (07:17)
--- NOTE | 2022-04-25 07:27 | HISTORY & PHYSICAL EXAMINATION ---
Chief Complaint - Chief Complaint Chief Complaint: here for colon cancer screening History of Present Illness - History Obtained From Records Reviewed: yes History obtained from: pt Exam Limitations: none - History of Present Illness HPI Comment/Other: here for colon cancer screening. 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) Derm: reports: Skin cancer surgery - POLST Patient has POLST: No Meds/Allgy - Home Medications Home Medications: Ambulatory Orders Medication Instructions Recorded Confirmed Tiotropium [place] [Spiriva] 1 puffs INH DAILY 10/23/16 04/25/22 Albuterol Sulf [Ventolin Hfa 2 puffs INH Q4HR PRN #1 inhaler 09/30/17 Inhaler] Omeprazole 20 mg PO 01/24/19 01/24/19 Gabapentin [Neurontin] 100 mg PO TID 04/25/22 04/25/22 - Allergies Allergies/Adverse Reactions: Allergies Allergy/AdvReac Type Severity Reaction Status Date / Time No Known Drug Allergies Allergy Verified 11/01/19 14:42 Review of Systems - Other Findings Other Findings: 10 pt ros as above otherwise unremarkable Exam - Vital Signs Reviewed Vital Signs: Yes Vital Signs: Vital Signs x48h Temp Pulse Resp BP Pulse Ox 04/25/22 06:42 36.2 C L 90 16 131/83 H 97 - Physical Exam General Appearance: positive: No acute distress, Alert Eyes Bilateral: positive: PERRL, EOMI, No scleral icterus ENT: positive: No signs of dehydration Neck: positive: No JVD, Trachea midline Respiratory: positive: No respiratory distress, Breath sounds nml Cardiovascular: positive: Regular rate & rhythm Abdomen: positive: Non-tender, No distention Neurologic/Psychiatric: positive: Oriented x3 Conclusion/Plan - Problem List (1) Colon cancer screening Conclusion/Plan: plan colonoscopy. parq held and consent obtained
[2022-04-25] MEDS ORDERED: SIMETHICONE 40 MG/0.6 ML 30 ML BOTTLE ONE (07:55)
[2022-04-25] MEDS ORDERED: SIMETHICONE 40 MG/0.6 ML 30 ML BOTTLE PO ONE (08:09)
[2022-04-25 08:44] VITALS: BP 137/90
--- NOTE | 2022-04-25 10:16 | ANESTHESIA POST OP EVALUATION ---
Anesthesia Post Eval - Post Anesthesia Eval Vitals: Last Vital Signs Temp 36.4 C L 04/25/22 08:43 Pulse 78 04/25/22 08:43 Resp 16 04/25/22 08:43 BP 137/90 H 04/25/22 08:43 Pulse Ox 99 04/25/22 08:43 CV Function Including HR & BP: Stable Pain Control: Satisfactory Nausea & Vomiting: Negative Mental Status: Baseline Respiratory Status: Airway Patent Hydration Status: Satisfactory Anesthesia Complications: None
== END 2022-04-25 06:04 | disposition home or self-care (01) ==
LOC: SDS 06:03
PROVIDERS: ATTEND Surgery
DX: Z12.11 Encounter for screening for malignant neoplasm of colon (principal); K57.30 Diverticulosis of large intestine without perforation or abscess without bleeding; J43.9 Emphysema, unspecified; Z87.891 Personal history of nicotine dependence
CPT/HCPCS: 45378; A9270; J7120

== ENCOUNTER 2022-11-06 21:52 | Emergency (ER) | payer OTHER ==
[2022-11-06 22:22] LABS: RAPID STREP SCREEN Negative (Negative)
--- NOTE | 2022-11-06 22:48 | ED Physician Documentation ---
History of Present Illness - Stated complaint Stated Complaint: THROAT PX,HEADACHE - Chief complaint Chief Complaint: Heent - History obtained from History obtained from: Patient - Additonal information Additional information: 62-year-old man with history of COPD presents with sore throat, Difficulty swallowing, headache, sinus congestion and weakness for the past 2 days. Patient states that he has multiple sick contacts at work. Denies shortness of breath, hemoptysis. Does have mild nonproductive cough. Review of Systems Constitutional: reports: Fatigue. denies: Fever Nose: reports: Sinus pressure / pain Throat: reports: Sore throat PD PAST MEDICAL HISTORY - Past Medical History Past Medical History: Yes Cardiovascular: None Respiratory: COPD, Emphysema Neuro: Migraines Endocrine/Autoimmune: None GI: GERD : None HEENT: None Psych: None Musculoskeletal: Chronic back pain Derm: Psoriasis - Past Surgical History Past Surgical History: Yes General: Appendectomy, Hiatal hernia repair Ortho: Spine surgery Cardiovascular: Other Derm: Skin cancer surgery - Present Medications Home Medications: Ambulatory Orders Medication Instructions Recorded Confirmed Tiotropium [place] [Spiriva] 1 puffs INH DAILY 10/23/16 11/06/22 Albuterol Sulf [Ventolin Hfa 2 puffs INH Q4HR PRN #1 inhaler 09/30/17 11/06/22 Inhaler] Omeprazole 20 mg PO DAILY 01/24/19 11/06/22 Gabapentin [Neurontin] 100 mg PO TID 04/25/22 11/06/22 Celecoxib [Celebrex] 200 mg PO DAILY 11/06/22 11/06/22 - Allergies Allergies/Adverse Reactions: Allergies Allergy/AdvReac Type Severity Reaction Status Date / Time No Known Drug Allergies Allergy Verified 11/06/22 22:03 - Social History Does the pt smoke?: No Smoking Status: Never smoker Does the pt drink ETOH?: Yes Does the pt have substance abuse?: Yes - Immunizations Immunizations are current?: Yes Immunizations: TDAP >10years/unknown - POLST Patient has POLST: No PD ED PE NORMAL - Vitals Vital signs reviewed: Yes - General General: Alert and oriented X 3, No acute distress, Well developed/nourished - HEENT HEENT: Atraumatic, PERRL, EOMI - Neck Neck: Supple, no meningeal sign - Cardiac Cardiac: RRR - Respiratory Respiratory: No respiratory distress, Clear bilaterally - Derm Derm: Normal color, Warm and dry Results - Vitals Vitals: Vital Signs - 24 hr 11/06/22 22:00 Temperature 37.6 C Heart Rate 106 H Respiratory 16 Rate Blood Pressure 124/89 H O2 Saturation 100 Oxygen O2 Source Room air - Labs Labs: Laboratory Tests 11/06/22 22:09 Group A Strep Rapid Negative PD Medical Decision Making - ED course ED course: 62-year-old man presents with viral upper respiratory infection symptoms. Centor criteria -1, therefore strep test was not ordered. Symptomatic care discussed. Return precautions given. Plan to follow-up with primary care provider. Departure - Departure Disposition: Home, Self Care Clinical Impression: Viral upper respiratory illness Condition: Good Instructions: ED Viral Syndrome Comments: You were seen in the emergency department for medical evaluation. It is likely that you have a cold virus. It is unlikely that you have strep throat based off of Centor criteria, a risk stratification tool used by medical underwriter. However, you should remain diligent for worsening symptoms and return to the emergency department immediately if you have shortness of breath that does not respond to albuterol at home. Return also to the emergency department if you have any other new or worsening symptoms or other concerns. Plan to follow-up with your primary care provider this week. Forms: Activity restrictions
[2022-11-06 23:09] VITALS: BP 142/66
[2022-11-06 23:56] LABS: B. PARAPERTUSSIS- RESP PCR PAN NOT DETECTED; B. PERTUSSIS- RESP PCR PANEL NOT DETECTED; C. PNEUMONIAE- RESP PCR PANEL NOT DETECTED; CORONAVIRUS 229E-RESP PCR NOT DETECTED; CORONAVIRUS HKU1-RESP PCR NOT DETECTED; CORONAVIRUS NL63-RESP PCR NOT DETECTED; CORONAVIRUS OC43-RESP PCR NOT DETECTED; HUMAN METAPNEUMOVIRUS NOT DETECTED; INFLUENZA A- RESP PCR PANEL NOT DETECTED; INFLUENZA B - RESP PCR PANEL NOT DETECTED; M. PNEUMONIAE- RESP PCR PANEL NOT DETECTED; PARAINFLUENZA VIRUS 1 NOT DETECTED; PARAINFLUENZA VIRUS 2 NOT DETECTED; PARAINFLUENZA VIRUS 3 NOT DETECTED; PARAINFLUENZA VIRUS 4 NOT DETECTED; RHINOVIRUS/ENTEROVIRUS DETECTED; RSV- RESP PCR PANEL NOT DETECTED; SARS-CoV-2 -RESP PCR PANEL NOT DETECTED
== END 2022-11-06 23:09 | disposition home or self-care (01) ==
LOC: ED 21:52
DX: J06.9 Acute upper respiratory infection, unspecified (principal); Z20.822 Contact with and (suspected) exposure to COVID-19
CPT/HCPCS: 87070; 87430; 87633; 99283

== ENCOUNTER 2023-05-26 11:23 | Outpatient (CLI) | payer OTHER ==
[2023-05-26 11:40] LABS: BASOPHILS % (AUTO) 0.5 %; EOSINOPHILS # (AUTO) 0.2 10^3/uL (0.0-0.7); EOSINOPHILS % (AUTO) 2.8 %; HGB - HEMOGLOBIN 16.4 g/dL (14.0-18.0); LYMPHOCYTES # (AUTO) 0.8 10^3/uL (1.5-3.5); LYMPHOCYTES % (AUTO) 10.7 %; MEAN CORPUSCULAR HEMOGLOBIN 30.4 pg (27.0-31.0); MEAN CORPUSCULAR HGB CONC 33.5 g/dL (32.0-36.0); MEAN CORPUSCULAR VOLUME 90.7 fL (80.0-94.0); MEAN PLATELET VOLUME 9.5 fL (7.4-11.4); MONOCYTES # (AUTO) 0.6 10^3/uL (0.0-1.0); NEUTROPHILS # (AUTO) 6.2 10^3/uL (1.5-6.6); NEUTROPHILS % (AUTO) 78.7 %; PLT - PLATELET COUNT 220 10^3/uL (130-450); WHITE BLOOD COUNT 7.8 x10^3/uL (4.8-10.8)
[2023-05-26 12:10] LABS: ALBUMIN 4.7 g/dL (3.2-5.5); ALBUMIN/GLOBULIN RATIO 1.7 (1.0-2.2); ALKALINE PHOSPHATASE 61 IU/L (42-121); ALT ALANINE AMINOTRANSFERASE 19 IU/L (10-60); AST ASPARTATE AMINOTRANSFERASE 26 IU/L (10-42); BILIRUBIN,TOTAL 0.6 mg/dL (0.2-1.0); BUN - BLOOD UREA NITROGEN 16 mg/dL (6-20); CALCIUM 9.3 mg/dL (8.5-10.3); CARBON DIOXIDE - CO2 29 mmol/L (21-32); CHLORIDE 104 mmol/L (101-111); CHOL/HDL RATIO 3.7 (<5.0); CHOLESTEROL 212 mg/dL; CREATININE 0.9 mg/dL (0.6-1.3); GFR - MDRD 85 (>89); GLUCOSE 108 mg/dL (74-104); HDL CHOLESTEROL 57 mg/dL; LDL CHOLESTEROL,CALCULATED 137 mg/dL; LDL/HDL RATIO 2.4 (<3.6); POTASSIUM 4.2 mmol/L (3.5-4.5); SODIUM 136 mmol/L (135-145); TOTAL PROTEIN 7.4 g/dL (6.4-8.9); TRIGLYCERIDES 92 mg/dL (48-352); VLDL CHOLESTEROL 18 mg/dL
[2023-05-26 12:23] LABS: THYROID STIMULATING HORMONE 1.95 uIU/mL (0.34-5.60)
--- NOTE | 2023-05-26 16:11 | XRAY Report ---
PROCEDURE: Chest 2 View X-Ray INDICATIONS: COPD, BULLOUS EMPHYSEMA TECHNIQUE: 2 views of the chest were acquired. COMPARISON: None. FINDINGS: Surgical changes and devices: None. Lungs and pleura: No pleural effusions or pneumothorax. Lungs are clear. Right apical scarring. E mphysema. Mediastinum: Mediastinal contours appear normal. Heart size is normal. Bones and chest wall: No suspicious bony lesions. Overlying soft tissues appear unremarkable. IMPRESSION: No acute cardiopulmonary process. Reviewed by: Wesley Horn on 05/26/2023 4:09 PM PDT Approved by: Wesley Horn on 05/26/2023 4:09 PM PDT Station ID: [id number]
== END 2023-05-26 11:24 | disposition home or self-care (01) ==
LOC: DI 11:23
PROVIDERS: ATTEND Nurse Practitioner
DX: J43.9 Emphysema, unspecified (principal); I10 Essential (primary) hypertension; I77.9 Disorder of arteries and arterioles, unspecified; E55.9 Vitamin D deficiency, unspecified; N40.1 Benign prostatic hyperplasia with lower urinary tract symptoms; R53.83 Other fatigue
CPT/HCPCS: 36415; 80053; 80061; 82306; 83721; 84153; 84443; 85025

== ENCOUNTER 2023-08-07 11:41 | Outpatient (CLI) | payer MEDICARE, OTHER ==
--- NOTE | 2023-08-07 16:05 | Ultrasound Report ---
PROCEDURE: Aorta Screening INDICATIONS: SCREENING FOR CARDIOVASCULAR CONDITION TECHNIQUE: Real time scanning was performed of the aorta and iliac arteries, with image documentatio n. COMPARISON: CT abdomen pelvis 04/04/2016. FINDINGS: Aorta: Proximal aortic diameter measures 2.2 x 1.8 cm. Mid-aorta measures 1.8 x 1.7 cm. Distal aortic diameter is 1.5 x 1.3 cm. Iliac arteries: Right common iliac artery measures 1.2 x 0.9 cm. Left common iliac artery measures 1.1 x 1.1 cm. IMPRESSION: No abdominal aortic aneurysm. Recommended intervals for follow-up imaging of ectatic aortas and abdominal aortic aneurysms, per ACR consensus guidelines: 2.5-2.9 cm: 5 years 3.0-3.4 cm: 3 years 3.5-3.9 cm: 2 years 4.0-4.4 cm: 1 year 4.5-4.9 cm: 6 months + endovascular referral 5.0-5.5 cm: 3-6 months + endovascular referral Reviewed by: Ashok Koch MD on 08/07/2023 3:44 PM PDT Approved by: Ashok Koch MD on 08/07/2023 3:44 PM PDT Station ID: [id number]
== END 2023-08-07 11:42 | disposition home or self-care (01) ==
LOC: DI 11:41
PROVIDERS: ATTEND Nurse Practitioner
DX: Z00.00 Encounter for general adult medical examination without abnormal findings (principal); Z13.6 Encounter for screening for cardiovascular disorders

== ENCOUNTER 2024-06-20 12:11 | Outpatient (CLI) | payer MEDICARE, OTHER ==
[2024-06-20 12:28] LABS: BASOPHILS % (AUTO) 0.4 %; EOSINOPHILS # (AUTO) 0.2 10^3/uL (0.0-0.7); EOSINOPHILS % (AUTO) 2.5 %; HCT - HEMATOCRIT 45.7 % (42.0-52.0); HGB - HEMOGLOBIN 15.2 g/dL (14.0-18.0); LYMPHOCYTES # (AUTO) 1.2 10^3/uL (1.5-3.5); LYMPHOCYTES % (AUTO) 14.1 %; MEAN CORPUSCULAR HEMOGLOBIN 29.9 pg (27.0-31.0); MEAN CORPUSCULAR HGB CONC 33.3 g/dL (32.0-36.0); MEAN PLATELET VOLUME 9.4 fL (7.4-11.4); MONOCYTES # (AUTO) 0.7 10^3/uL (0.0-1.0); MONOCYTES % (AUTO) 7.8 %; NEUTROPHILS # (AUTO) 6.3 10^3/uL (1.5-6.6); PLT - PLATELET COUNT 187 10^3/uL (130-450); RED BLOOD COUNT 5.08 10^6/uL (4.70-6.10); RED CELL DISTRIBUTION WIDTH 12.8 % (12.0-15.0); WHITE BLOOD COUNT 8.4 x10^3/uL (4.8-10.8)
[2024-06-20 12:47] LABS: ALBUMIN 4.3 g/dL (3.2-5.5); ALKALINE PHOSPHATASE 61 IU/L (42-121); ALT ALANINE AMINOTRANSFERASE 29 IU/L (10-60); AST ASPARTATE AMINOTRANSFERASE 27 IU/L (10-42); BILIRUBIN,TOTAL 0.7 mg/dL (0.2-1.0); BUN - BLOOD UREA NITROGEN 17 mg/dL (6-20); CALCIUM 8.9 mg/dL (8.5-10.3); CARBON DIOXIDE - CO2 27 mmol/L (21-32); CHLORIDE 106 mmol/L (101-111); CHOL/HDL RATIO 2.6 (<5.0); CHOLESTEROL 118 mg/dL; CREATININE 0.9 mg/dL (0.6-1.3); GFR - MDRD 84 (>89); GLUCOSE 106 mg/dL (74-104); HDL CHOLESTEROL 45 mg/dL; LDL CHOLESTEROL,CALCULATED 56 mg/dL; LDL/HDL RATIO 1.2 (<3.6); POTASSIUM 4.1 mmol/L (3.5-4.5); SODIUM 136 mmol/L (135-145); TOTAL PROTEIN 6.4 g/dL (6.4-8.9); TRIGLYCERIDES 83 mg/dL; VLDL CHOLESTEROL 17 mg/dL
== END 2024-06-20 12:12 | disposition home or self-care (01) ==
LOC: LAB 12:11
PROVIDERS: ATTEND Nurse Practitioner
DX: I10 Essential (primary) hypertension (principal); I77.9 Disorder of arteries and arterioles, unspecified
CPT/HCPCS: 36415; 80053; 80061; 83721; 85025